=== PATIENT | female | born 1955 | race Hispanic/Latino ===

== ENCOUNTER → 2019-10-07 | Outpatient (CLI) | payer MEDICARE | END | disposition home or self-care (01) | LOC: RAH 13:50 | PROVIDERS: ATTEND Internal Medicine | DX: Z12.31 Encounter for screening mammogram for malignant neoplasm of breast (principal) | CPT/HCPCS: 77067 ==

== ENCOUNTER → 2022-10-09 | Outpatient (CLI) | payer MEDICARE | END | disposition home or self-care (01) | LOC: RAH 12:48 | PROVIDERS: ATTEND Internal Medicine | DX: Z12.31 Encounter for screening mammogram for malignant neoplasm of breast (principal); N60.02 Solitary cyst of left breast | CPT/HCPCS: 77066 ==

== ENCOUNTER 2024-02-05 21:25 | Emergency (ER) | payer OTHER, MEDICARE ==
[~2024-02-05] VITALS: Ht 167.6 cm; Wt 87.5 kg
[2024-02-05] MEDS ORDERED: ACETAMINOPHEN 325 MG TAB PO ONE (22:00)
[2024-02-05] MEDS: ACETAMINOPHEN 325 MG/10.15ML UDCUP PO ONE (22:04)
[2024-02-05 22:18] LABS: RAPID GROUP A STREP negative (NEGATIVE)
[2024-02-05 22:25] LABS: INFLUENZA TYPE A NEGATIVE FOR TYPE A (NEG); INFLUENZA TYPE B NEGATIVE FOR TYPE B (NEG)
[2024-02-05 22:28] LABS: COVID19 (SARS ANTIGEN RAPID) PRESUMPTIVE NEGATIVE (NEGATIVE)
[2024-02-05 22:48] VITALS: TEMP 100
[2024-02-06 00:15] LABS: APPEARANCE,URINE CLOUDY (CLEAR); BILIRUBIN,URINE NEGATIVE (NEGATIVE); COLOR,URINE YELLOW (YELLOW); GLUCOSE, URINE (UA) NEGATIVE (NEGATIVE); KETONES,URINE NEGATIVE (NEGATIVE); LEUKOCYTE ESTERASE ,URINE 25 Leu/uL (NEGATIVE); NITRATE,URINE NEGATIVE (NEGATIVE); OCCULT BLOOD,URINE LARGE (NEGATIVE); PROTEIN,URINE 100 mg/dL (NEGATIVE)
[2024-02-06 00:18] LABS: ADD UA MICROSCOPIC YES
[2024-02-06] MEDS ORDERED: LEVO750T68 PO (00:40)
[2024-02-06 00:52] LABS: BACTERIA,URINE Few /HPF (None Seen)
[2024-02-06 00:53] LABS: FINE GRANULAR CASTS,URINE 0-2 /LPF (None Seen); SQUAMOUS EPITHELIAL CELL,UR Few /HPF (0-2)
[2024-02-06] MEDS: LEVOFLOXACIN 500 MG/D5W 100 ML 100 ML IV STA (00:53)
[2024-02-06 01:51] VITALS: BP 123/67; PULSE 88; RESP 17; O2SAT 96
== END 2024-02-06 01:54 | disposition home or self-care (01) ==
LOC: EDH 21:25
DX: N39.0 Urinary tract infection, site not specified (principal); F41.9 Anxiety disorder, unspecified; Z88.0 Allergy status to penicillin; Z90.49 Acquired absence of other specified parts of digestive tract; Z20.822 Contact with and (suspected) exposure to COVID-19
CPT/HCPCS: 99284; 87426; 87880; 87804 ×2; 81001; 96365; J1956

== ENCOUNTER 2024-03-11 09:49 | Day surgery (SDC) | payer OTHER, MEDICARE ==
[2024-03-11] VITALS (11 sets, daily range): BP systolic 17–141; BP diastolic 43–74; PULSE 48–62; RESP 14–17
[~2024-03-11] VITALS: Ht 160 cm; Wt 85.3 kg
[~2024-03-11 09:49] MED LIST: AEC81 PO; CITA-107 PO
[2024-03-11] MEDS: 0.9%NACL 1000ML 1,000 ML IV ONE (10:28)
[2024-03-11] MEDS ORDERED: PROPOFOL 10 MG/ML 20ML VIAL IV ONE (11:54)
== END 2024-03-11 13:35 | disposition home or self-care (01) ==
LOC: ENDO 09:49 → DAH 09:49 → ENDO 13:35
PROVIDERS: ATTEND Internal Medicine Gastroenterology
DX: Z12.11 Encounter for screening for malignant neoplasm of colon (principal); K63.5 Polyp of colon; F41.9 Anxiety disorder, unspecified; Z88.0 Allergy status to penicillin; Z90.49 Acquired absence of other specified parts of digestive tract; Z86.010 Personal history of colon polyps
CPT/HCPCS: 45380; J7030; J2704; A4620; A4215 ×2; A4223; A4222; A4221; A4663; A4606; J3490